=== PATIENT | male | born 1965 | race Hispanic/Latino ===

== ENCOUNTER 2017-05-23 21:50 | Emergency (ER) | payer BC ==
[2017-05-23] MEDS ORDERED: ASPIRIN PO ONE (22:08)
[2017-05-23 22:36] LABS: Basophils # (Auto) 0.1 K/mm3 (0.0-0.1); Basophils % (Auto) 0.5 % (0.0-1.8); Eosinophils # (Auto) 0.2 K/mm3 (0.0-0.4); Eosinophils % (Auto) 2.2 % (0.0-4.3); Hematocrit 42.9 % (35.5-45.6); Lymphocytes # (Auto) 3.8 K/mm3 (1.2-5.4); Lymphocytes % (Auto) 39.5 % (13.4-35.0); Mean Corpuscular HGB Conc 35 % (32-34); Mean Corpuscular Hemoglobin 33 pg (28-32); Mean Corpuscular Volume 94 fl (84-94); Monocytes # (Auto) 0.8 K/mm3 (0.0-0.8); Monocytes % (Auto) 8.3 % (0.0-7.3); Platelet Count 259 K/mm3 (140-440); Red Blood Count 4.59 M/mm3 (3.65-5.03); Red Cell Distribution Width 13.1 % (13.2-15.2)
[2017-05-23 22:47] LABS: BUN/Creatinine Ratio 15; Blood Urea Nitrogen 12 mg/dL (9-20); Calcium 9.2 mg/dL (8.4-10.2); Hemolysis Index 17
[2017-05-23 23:14] LABS: Bilirubin,Urine NEG (Negative); Blood,Urine NEG (Negative); Color,Urine Yellow (Yellow); Mucus,Urine 1+ /HPF
[2017-05-24 02:57] VITALS: BP 120/66
--- NOTE | 2017-05-24 05:20 | Emergency Department Report ---
HPI - General Chief Complaint: Chest Pain Time Seen by Provider: 05/24/17 03:37 - HPI HPI: 52-year-old male presents to the ED with chest pain chest pain, onset 6 hours prior to evaluation while at rest, Location: mid chest Radiation: none, Severity now (0-10): 2, Severity at worst (0-10): 8 Duration: 5 minutes characterized as: sharp. The pain is relieved with nothing, Patient denies exertional pain, patient denies pleuritic pain. Patient denies associated symptoms, such as nausea/vomiting, no diaphoresis, no shortness of breath. ED Past Medical Hx - Past Medical History Hx Hypertension: Yes - Surgical History Additional Surgical History: prostate ca -2008 - Social History Smoking Status: Never Smoker Substance Use Type: Alcohol ED Review of Systems ROS: Stated complaint: CP; SOB Other details as noted in HPI Comment: All other systems reviewed and negative Respiratory: denies: cough Cardiovascular: chest pain Endocrine: denies: excessive sweating Physical Exam - Physical Exam Vital Signs: Vital Signs 05/23/17 05/24/17 05/24/17 22:03 02:07 02:15 Temperature 98.4 F Pulse Rate 66 54 L 55 L Respiratory 18 17 13 Rate Blood Pressure 148/83 120/66 O2 Sat by Pulse 98 96 96 Oximetry 05/24/17 05/24/17 02:31 02:45 Temperature Pulse Rate 60 59 L Respiratory 12 13 Rate Blood Pressure 120/66 120/66 O2 Sat by Pulse 97 97 Oximetry Physical Exam: - Physical Exam Physical Exam: - General Limitations: No Limitations General appearance: alert, in no apparent distress. - Head Head exam: Present: atraumatic, normocephalic - Eye Eye exam: Present: normal appearance - ENT ENT exam: Present: mucous membranes moist - Neck Neck exam: Present: normal inspection - Respiratory Respiratory exam: Present: normal lung sounds bilaterally. Absent: respiratory distress - Cardiovascular Cardiovascular Exam: Present: normal rhythm, normal rate. Absent: systolic murmur, diastolic murmur, rubs, gallop - GI/Abdominal GI/Abdominal exam: Present: soft, normal bowel sounds - Extremities Exam Extremities exam: Present: normal inspection - Back Exam Back exam: Present: normal inspection - Neurological Exam Neurological exam: Present: alert, oriented X3 - Psychiatric Psychiatric exam: normal affect and mood - Skin Skin exam: Present: warm, dry, intact, normal color. Absent: rash ED Course Vital Signs 05/23/17 05/24/17 05/24/17 22:03 02:07 02:15 Temperature 98.4 F Pulse Rate 66 54 L 55 L Respiratory 18 17 13 Rate Blood Pressure 148/83 120/66 O2 Sat by Pulse 98 96 96 Oximetry 05/24/17 05/24/17 02:31 02:45 Temperature Pulse Rate 60 59 L Respiratory 12 13 Rate Blood Pressure 120/66 120/66 O2 Sat by Pulse 97 97 Oximetry - Reevaluation(s) Reevaluation #1: 05/24/17 05:18 Advised admission but patient refused ED Medical Decision Making - Lab Data Result diagrams: 05/23/17 22:13 05/23/17 22:13 Critical care attestation.: If time is entered above; I have spent that time in minutes in the direct care of this critically ill patient, excluding procedure time. ED Disposition Clinical Impression: Chest pain Qualifiers: Chest pain type: other chest pain Qualified Code(s): R07.89 - Other chest pain Disposition: DC-01 TO HOME OR SELFCARE Is pt being admited?: No Does the pt Need Aspirin: No Condition: Stable Instructions: Chest Pain (ED) Referrals: RODRIGUEZ BRASHER MD [Primary Care Provider] - 3-5 Days TAMMY NIELSEN MD [Staff Physician] - 3-5 Days
== END 2017-05-24 06:25 | disposition home or self-care (01) ==
LOC: ED 21:50
DX: R07.89 Other chest pain (principal); I10 Essential (primary) hypertension
CPT/HCPCS: 36415; 80048; 81001; 84484; 85025; 85379; 93005; 93010; 99283